=== PATIENT | female | born 1940 | race Caucasian/White ===

== ENCOUNTER 2018-11-21 21:41 | Inpatient (IN) | payer MEDICARE, OTHER ==
[~2018-11-21] VITALS: Ht 160 cm; Wt 78.0 kg
[2018-11-21 20:00] VITALS: BP 111/65
[~2018-11-21 21:41] MED LIST: ATORVASTATIN CA80 MG PO; CITALOPRAM HBR20 MG PO; CLOPIDOGREL75 MG PO; COL-RITE100 MG PO; DIGOXIN125 MCG PO; IRON55 MG PO; JANTOVEN2.5 MG PO; LISINOPRIL10 MG PO; METOPROLOL SUCC25 MG PO; MIRALAX17 GM PO; NORVASC10 MG PO; PANTOPRAZOLE SO40 MG PO; TOVIAZ8 MG PO; ULTRAM50 MG PO; Z.0.BYSTOLIC10 MG; Z.0.CITALOPRAM HBR20; Z.0.COUMADIN4 MG; Z.0.LASIX20 MG; Z.0.LISINOPRIL40 MG; Z.0.TEKTURNA300 MG; Z.0.VESICARE5 MG; [UNRECOGNIZED DRUG - OTHER] PO
[2018-11-21] MEDS ORDERED: SODIUM CHLORIDE 0.9% 1000ML 1,000 ML IV ONE (22:00)
[2018-11-21 22:31] LABS: BASOPHILS # (AUTO) 0.1 (0.0-0.1); EOSINOPHILS # (AUTO) 0.3 (0.0-0.4); EOSINOPHILS % 5.3 % (0.0-6.0); HEMATOCRIT 42.3 % (34.2-44.1); HEMOGLOBIN 13.7 g/dL (12.0-16.0); LYMPHOCYTES # (AUTO) 0.9 (1.0-3.2); LYMPHOCYTES % 18.6 % (18.0-39.1); MEAN CORPUSCULAR HEMOGLOBIN 28.1 pg (28-32); MEAN CORPUSCULAR HGB CONC 32.4 g/dL (31-35); MEAN CORPUSCULAR VOLUME 86.7 fL (81-99); MONOCYTES # (AUTO) 0.5 (0.2-0.8); MONOCYTES % 9.7 % (4.4-11.3); NEUTROPHILS # (AUTO) 3.2 (2.1-6.9); NEUTROPHILS % 65.2 % (38.7-80.0); PLATELET COUNT 223 x10e3/uL (140-360); RED BLOOD COUNT 4.88 x10e6/uL (3.6-5.1); RED CELL DISTRIBUTION WIDTH 14.7 % (11.7-14.4)
[2018-11-21 22:38] LABS: INR 0.92; PARTIAL THROMBOPLASTIN TIME 26.2 seconds (23.8-35.5); PROTHROMBIN TIME 13.2 seconds (11.9-14.5)
[2018-11-21 22:42] LABS: CLARITY,URINE CLEAR (CLEAR); COLOR,URINE YELLOW (YELLOW)
[2018-11-21 22:47] LABS: ALBUMIN 4.1 g/dL (3.5-5.0); ALBUMIN/GLOBULIN RATIO 1.3 (0.8-2.0); ANION GAP 21.8 mmol/L (8-16); CALCIUM 11.4 mg/dL (8.4-10.2); CREATININE, SERUM 2.26 mg/dL (0.57-1.11); POTASSIUM 3.8 mmol/L (3.5-5.1)
[2018-11-21 22:48] LABS: BILIRUBIN,URINE NEGATIVE (NEGATIVE); KETONES,URINE NEGATIVE (NEGATIVE); LEUKOCYTE ESTERASE ,URINE NEGATIVE (NEGATIVE); NITRITE,URINE NEGATIVE (NEGATIVE); PROTEIN,URINE DIPSTICK NEGATIVE (NEGATIVE); URINE UROBILINOGEN 0.2 mg/dL (0.2 - 1)
[2018-11-21 22:53] LABS: CREATINE KINASE MB 0.5 ng/mL (0-5.0)
[2018-11-21 23:00] LABS: BACTERIA,URINE RARE /HPF; EPITHELIAL CELLS,URINE FEW /LPF; WBC,URINE (MAN) 0-5 /HPF (0-5)
[2018-11-21] MEDS ORDERED: INSULIN REGULAR, HUMAN 100 UNIT/1 ML 3ML VIAL SQ ONE (23:00)
[2018-11-21] MEDS ORDERED: DIGOXIN INJ 0.25 MG/ML 2 ML AMP IV ONE (23:00)
[2018-11-21] MEDS ORDERED: DIGOXIN INJ 0.25 MG/ML 2 ML AMP ONE (23:08)
--- NOTE | 2018-11-21 23:22 | Diagnostic Imaging Report ---
CHEST SINGLE (PORTABLE), 11/21/2018 9:42 PM Technique: CHEST SINGLE (PORTABLE) Comparison: None available. Clinical history: Shortness of breath Findings: See Impression Impression: Limited by portable technique, soft tissue attenuation. Consider follow-up upright PA and lateral. 1. Lines/Tubes: Left chest wall dual-lead pacer noted. 2. Enlarged cardiomediastinal silhouette. Prominent ernie/central pulmonary arteries arteries. Aortic calcifications. 3. Low lung volumes. No overt edema or consolidation. No effusion or pneumothorax. Signed by: Dr Sherice Ferrer MD on 11/21/2018 11:19 PM
[2018-11-22] VITALS (9 sets, daily range): BP systolic 111–141; BP diastolic 65–80
[2018-11-22] MEDS ORDERED: SODIUM CHLORIDE 0.9% 1000ML 1,000 ML IV SCH (00:27)
[2018-11-22] MEDS ORDERED: DEXTROSE 50% SYRINGE 50 ML IV PRN (00:30)
--- NOTE | 2018-11-22 00:43 | NUR ---
NOTIFIED MD OF 425 BS, PUTTING IN NEW ORDERS
[2018-11-22] MEDS ORDERED: INSULIN REGULAR, HUMAN 100 UNIT/1 ML 3ML VIAL SQ ONE (00:45)
--- OUTSIDE RECORDS SUMMARY | 2018-11-22 01:01 | XMS REPORT ---
Author Author [facility] Address Unknown Phone Unavailable Care Team Providers Care Head Of Acquisitions Name Role Phone Teresa BAUTISTA Unavailable Unavailable Problems This patient has no known problems. Allergies, Adverse Reactions, Alerts This patient has no known allergies or adverse reactions. Medications This patient has no known medications. Results Test Description Test Time Test Comments Text Results Atomic Results Result Comments CHEST SINGLE (PORTABLE) 2018-11-21 23:17:00 [facility] [address] [place] [address] Patient Name: MAXIMILIANO MANCIA MR #: [id number] : 1940 Age/Sex: 78/F Req #: [id number] Adm Physician: Ordered by: PAOLA BAUTISTA MD Report #: [id number] Location: ER Room/Bed: Procedure: [id number] DX/CHEST SINGLE (PORTABLE) Exam Date: 11/21/18 Exam Time: 2224 REPORT STATUS: Signed CHEST SINGLE (PORTABLE), 11/21/2018 9:42 PM Technique: CHEST SINGLE (PORTABLE) Comparison: None available. Clinical history: Shortness of breath Findings: See Impression Impression: Limited by portable technique, soft tissue attenuation. Consider follow-up upright PA and lateral. 1. Lines/Tubes: Left chest wall dual-lead pacer noted. 2. Enlarged cardiomediastinal silhouette. Prominent ernie/central pulmonary arteries arteries. Aortic calcifications. 3. Low lung volumes. No overt edema or consolidation. No effusion or pneumothorax. Signed by: Dr Jaiden Ferrer MD on 11/21/2018 11:19 PM Dictated By: JAIDEN FERRER MD 18 Transcribed By: RADHA on 11/21/182318 COPY TO: PAOLA BAUTISTA MD
[2018-11-22] MEDS ORDERED: FUROSEMIDE40 MG PO (01:12)
[2018-11-22] MEDS ORDERED: FENOFIBRATE145 MG PO (01:12)
[2018-11-22] MEDS ORDERED: METFORMIN HCL500 MG PO (01:12)
[2018-11-22] MEDS ORDERED: ATORVASTATIN CA40 MG PO (01:12)
[2018-11-22] MEDS ORDERED: POTASSIUM CHLO20 ME1 PO (01:12)
[2018-11-22] MEDS ORDERED: ASPIR 8181 MG PO (01:12)
[2018-11-22] MEDS ORDERED: GLIMEPIRIDE2 MG PO (01:12)
[2018-11-22] MEDS ORDERED: LOPERAMIDE2 MG PO (01:12)
[2018-11-22] MEDS ORDERED: METOPROLOL TART25 MG PO (01:12)
[2018-11-22] MEDS ORDERED: CALCIUM 500+D1 EACH (01:12)
--- NOTE | 2018-11-22 02:05 | NUR ---
INFORMED AJAY SZYMANSKI OF NEED TO RE-CHECK BLOOD GLUCOSE AFTER LAST DOSE OF 10U/SUBQ HUMULIN R GIVEN HERE IN ER.
--- NOTE | 2018-11-22 07:25 | NUR ---
RECD PT AWAKE ,TRYING TO GET OUT OF BED,BED ALARM IN PLACE,APHASIC,
[2018-11-22 08:28] LABS: CREATINE KINASE MB 0.6 ng/mL (0-5.0)
[2018-11-22] MEDS: INSULIN REGULAR, HUMAN 100 UNIT/1 ML 3ML VIAL SQ SCH ×4 (08:30→21:27)
[2018-11-22] MEDS: GLIMEPIRIDE 2 MG TAB PO SCH (09:00)
[2018-11-22] MEDS: CITALOPRAM HYDROBROMIDE 20 MG TAB PO SCH (09:00)
[2018-11-22] MEDS: DOCUSATE SODIUM 100 MG CAP PO SCH (09:00)
[2018-11-22] MEDS ORDERED: CLOPIDOGREL BISULFATE 75 MG TAB PO SCH (09:00)
[2018-11-22] MEDS ORDERED: METOPROLOL SUCCINATE 25 MG TAB XL PO SCH (09:00)
[2018-11-22] MEDS: METFORMIN HCL 500 MG TAB PO SCH ×2 (09:00→17:00)
[2018-11-22] MEDS: ASPIRIN 81 MG CHEW TAB PO SCH (09:00)
[2018-11-22] MEDS: POTASSIUM CHLORIDE 20 MEQ TAB CR PO SCH ×2 (09:01→17:00)
[2018-11-22] MEDS: DIGOXIN 0.125 MG TAB PO SCH (09:01)
[2018-11-22] MEDS: METOPROLOL TARTRATE 25 MG TAB PO SCH ×2 (09:02→17:00)
[2018-11-22] MEDS: AMLODIPINE BESYLATE 10 MG TAB PO SCH (09:02)
[2018-11-22] MEDS: FUROSEMIDE 40 MG TAB PO SCH ×2 (09:02→17:00)
[2018-11-22] MEDS: LISINOPRIL 10 MG TAB PO SCH (09:04)
[2018-11-22] MEDS: PANTOPRAZOLE SOD 40 MG TABEC PO SCH (09:05)
[2018-11-22] MEDS: FENOFIBRATE 48 MG TAB PO SCH (09:05)
[2018-11-22 14:59] LABS: CREATINE KINASE MB 0.6 ng/mL (0-5.0)
[2018-11-22] MEDS ORDERED: WARFARIN SOD 2.5 MG TAB PO SCH (17:00)
[2018-11-22] MEDS ORDERED: RISPERDAL0.25 MG PO (17:40)
--- NOTE | 2018-11-22 18:01 | NUR ---
PT UP IN BED NO DISTRESS NOTED ,NO S/S DISCOMFORT
--- NOTE | 2018-11-22 19:30 | NUR ---
Patient visited in room during nursing rounds. Patient alert and oriented x0-1. Patient is bed bound and extremely weak. Pt is confused with at time aphasic in nature. Pt is diapered and incontinent. Bed alarm active. Will monitor closely.
[2018-11-23] VITALS (7 sets, daily range): BP systolic 110–128; BP diastolic 56–78
[2018-11-23 06:03] LABS: BASOPHILS # (AUTO) 0.1 (0.0-0.1); EOSINOPHILS # (AUTO) 0.3 (0.0-0.4); EOSINOPHILS % 4.5 % (0.0-6.0); HEMATOCRIT 43.3 % (34.2-44.1); HEMOGLOBIN 13.9 g/dL (12.0-16.0); LYMPHOCYTES % 14.5 % (18.0-39.1); MEAN CORPUSCULAR HEMOGLOBIN 28.3 pg (28-32); MEAN CORPUSCULAR HGB CONC 32.1 g/dL (31-35); MEAN CORPUSCULAR VOLUME 88.2 fL (81-99); MONOCYTES # (AUTO) 0.6 (0.2-0.8); MONOCYTES % 8.7 % (4.4-11.3); NEUTROPHILS # (AUTO) 4.7 (2.1-6.9); NEUTROPHILS % 70.9 % (38.7-80.0); PLATELET COUNT 204 x10e3/uL (140-360); RED BLOOD COUNT 4.91 x10e6/uL (3.6-5.1); RED CELL DISTRIBUTION WIDTH 14.1 % (11.7-14.4)
[2018-11-23 06:44] LABS: ALBUMIN 3.8 g/dL (3.5-5.0); ALBUMIN/GLOBULIN RATIO 1.3 (0.8-2.0); ANION GAP 18.1 mmol/L (8-16); CALCIUM 10.1 mg/dL (8.4-10.2); CREATININE, SERUM 1.83 mg/dL (0.57-1.11); POTASSIUM 4.1 mmol/L (3.5-5.1)
[2018-11-23] MEDS: INSULIN REGULAR, HUMAN 100 UNIT/1 ML 3ML VIAL SQ SCH ×4 (07:30→21:27)
--- NOTE | 2018-11-23 07:30 | NUR ---
PATIENT IS AWAKE AND IN STABLE CONDITION WITH NO S/S OF RESPIRATORY DISTRESS. NO PAIN VOICED. RN AND PCT APPLIED BILATERAL HEEL PROTECTORS. 02 APPLIED AT 2L NC. BED ALARM ON. CALL LIGHT IS WITHIN REACH, PATIENT INSTRUCTED TO CALL FOR ASSISTANCE NEEDED.
[2018-11-23] MEDS: METFORMIN HCL 500 MG TAB PO SCH ×2 (09:03→17:54)
[2018-11-23] MEDS: CITALOPRAM HYDROBROMIDE 20 MG TAB PO SCH (09:03)
[2018-11-23] MEDS: GLIMEPIRIDE 2 MG TAB PO SCH (09:03)
[2018-11-23] MEDS: DOCUSATE SODIUM 100 MG CAP PO SCH (09:03)
[2018-11-23] MEDS: FUROSEMIDE 40 MG TAB PO SCH ×2 (09:03→17:54)
[2018-11-23] MEDS: DIGOXIN 0.125 MG TAB PO SCH (09:03)
[2018-11-23] MEDS: ASPIRIN 81 MG CHEW TAB PO SCH (09:03)
[2018-11-23] MEDS: POTASSIUM CHLORIDE 20 MEQ TAB CR PO SCH ×2 (09:03→17:54)
[2018-11-23] MEDS: AMLODIPINE BESYLATE 10 MG TAB PO SCH (09:04)
[2018-11-23] MEDS: METOPROLOL TARTRATE 25 MG TAB PO SCH ×2 (09:04→17:55)
[2018-11-23] MEDS: RISPERIDONE 0.5 MG TAB PO SCH ×2 (09:04→17:55)
[2018-11-23] MEDS: LISINOPRIL 10 MG TAB PO SCH (09:04)
[2018-11-23] MEDS: FENOFIBRATE 48 MG TAB PO SCH (09:04)
[2018-11-23] MEDS: PANTOPRAZOLE SOD 40 MG TABEC PO SCH (09:04)
--- NOTE | 2018-11-23 11:35 | NUR ---
RADHA REC'D PHONE CALL TODAY FROM PT'S DTR LAINE FIORE [phone] STATING THAT WHEN HER MOTHER IS DISCHARGED SHE WILL BE RETURNING TO [facility]ER [facility] STATES SHE HAS ALREADY SIGNED PAPERS WITH IDRIS FROM [facility]
--- NOTE | 2018-11-23 16:52 | NUR ---
CASE MANAGEMENT INFORMED RN PATIENT WILL HAVE POSSIBLE DISCHARGE FOR TOMORROW.
--- NOTE | 2018-11-23 17:13 | NUR ---
SPOKE Flori STEINBERG FROM [facility] THIS AM. [facility] PAPERWORK HAD BEEN SIGNED BY THE DTR, LAINE, AND SHE WOULD BE WORKING ON GETTING THE PT BACK TO [facility] TODAY. MET Flori JANG, DTR, AT THE PT.'S BEDSIDE ON HER LUNCH BREAK. STATES SHE WAS AWARE HER MOTHER WOULD RETURN TO [facility]. NOTIFIED BEDSIDE NURSE, LEISA ONCE [facility] WAS READY WE WOULD NEED A DC ORDER TO HOSPICE FOR THE PT. VERBALIZED UNDERSTANDING. STATES SHE WILL REACH OUT TO DR. ANNE FOR ORDERS. CM LATER PLACED CALL TO DR. ANNE REGARDING PT RETURNING HOME TODAY. DR. ANNE STATES THE DTR FELT THE MOVE WAS QUICK. INQUIRED IF SS BS'S COULD BE DONE WHILE THE PT IS IN HOSPICE. INFORMED DR. ANNE THE PT WILL BE UNDER THE CARE OF ANOTHER PHYSICIAN AND HE/SHE WOULD BE MANAGING THE PT'S CARE. DR. ANNE ASKED TO FIND OUT IF THIS COULD BE DONE. IDRIS TOUSSAINT WAS PRESENT AND STATED THE FACILITY CAN DO BS'S, BUT THE ACCEPTING MD; DR. TORRES, WILL BE GIVING THE ORDERS. DR. ANNE ASKED THAT WE HOLD THE DC TIL THE AM. DONE.
--- NOTE | 2018-11-23 19:46 | NUR ---
PATIENT IS RESTING IN BED- IN STABLE CONDITION WITH NO S/S OF RESPIRATORY DISTRESS. NO PAIN VOICED. BED ALARM APPLIED. CALL LIGHT IS WITHIN REACH, INSTRUCTED TO CALL FOR ASSISTANCE NEEDED. REPORT GIVEN TO ONCOMING NURSE
[2018-11-24] VITALS (8 sets, daily range): BP systolic 101–195; BP diastolic 57–90
--- NOTE | 2018-11-24 06:50 | NUR ---
PT IS SCREAMING. I CALLED DAUGHTER LAINE TO INFORM HER. DAUGHTER STATES THAT SHE DOES DOES AT HOME. DAUGHTER STATES THAT SHE WILL BE HERE SHORTLY.
[2018-11-24] MEDS: INSULIN REGULAR, HUMAN 100 UNIT/1 ML 3ML VIAL SQ SCH ×4 (07:30→21:30)
[2018-11-24] MEDS: ASPIRIN 81 MG CHEW TAB PO SCH (08:51)
[2018-11-24] MEDS: POTASSIUM CHLORIDE 20 MEQ TAB CR PO SCH ×2 (08:51→16:55)
[2018-11-24] MEDS: GLIMEPIRIDE 2 MG TAB PO SCH (08:51)
[2018-11-24] MEDS: CITALOPRAM HYDROBROMIDE 20 MG TAB PO SCH (08:51)
[2018-11-24] MEDS: DOCUSATE SODIUM 100 MG CAP PO SCH (08:51)
[2018-11-24] MEDS: METFORMIN HCL 500 MG TAB PO SCH ×2 (08:51→16:55)
[2018-11-24] MEDS: LISINOPRIL 10 MG TAB PO SCH (08:52)
[2018-11-24] MEDS: PANTOPRAZOLE SOD 40 MG TABEC PO SCH (08:52)
[2018-11-24] MEDS: FUROSEMIDE 40 MG TAB PO SCH ×2 (08:52→16:55)
[2018-11-24] MEDS: FENOFIBRATE 48 MG TAB PO SCH (08:52)
[2018-11-24] MEDS: RISPERIDONE 0.5 MG TAB PO SCH ×2 (08:52→16:56)
[2018-11-24] MEDS: METOPROLOL TARTRATE 25 MG TAB PO SCH ×2 (08:52→16:56)
[2018-11-24] MEDS: DIGOXIN 0.125 MG TAB PO SCH (08:52)
[2018-11-24] MEDS: AMLODIPINE BESYLATE 10 MG TAB PO SCH (08:52)
[2018-11-24] MEDS: TRAMADOL HCL 50 MG TAB PO PRN (16:56)
[2018-11-25 00:28] VITALS: BP 109/70
[2018-11-25] MEDS: TRAMADOL HCL 50 MG TAB PO PRN (01:49)
[2018-11-25 04:00] VITALS: BP 100/64
--- NOTE | 2018-11-25 07:30 | NUR ---
PT UP IN BED NO DISTRESS NOTED,DENIES PAIN.
[2018-11-25 08:30] VITALS: BP 113/55
--- NOTE | 2018-11-25 08:48 | NUR ---
SPOKE WITH IDRIS GRAMAJO WITH [facility], PT WILL BE PICKED UP AT 10 AM BY [facility] TO RETURN TO [facility].
[2018-11-25] MEDS: DIGOXIN 0.125 MG TAB PO SCH (09:00)
[2018-11-25] MEDS: RISPERIDONE 0.5 MG TAB PO SCH (09:00)
[2018-11-25] MEDS: ASPIRIN 81 MG CHEW TAB PO SCH (09:00)
[2018-11-25] MEDS: METFORMIN HCL 500 MG TAB PO SCH (09:00)
[2018-11-25] MEDS: CITALOPRAM HYDROBROMIDE 20 MG TAB PO SCH (09:00)
[2018-11-25] MEDS: FUROSEMIDE 40 MG TAB PO SCH (09:00)
[2018-11-25] MEDS: DOCUSATE SODIUM 100 MG CAP PO SCH (09:00)
[2018-11-25] MEDS: PANTOPRAZOLE SOD 40 MG TABEC PO SCH (09:00)
[2018-11-25] MEDS: POTASSIUM CHLORIDE 20 MEQ TAB CR PO SCH (09:00)
[2018-11-25] MEDS: METOPROLOL TARTRATE 25 MG TAB PO SCH (09:00)
[2018-11-25] MEDS: AMLODIPINE BESYLATE 10 MG TAB PO SCH (09:00)
[2018-11-25] MEDS: LISINOPRIL 10 MG TAB PO SCH (09:00)
[2018-11-25] MEDS: FENOFIBRATE 48 MG TAB PO SCH (09:00)
[2018-11-25] MEDS: GLIMEPIRIDE 2 MG TAB PO SCH (09:00)
--- NOTE | 2018-11-25 10:15 | NUR ---
DISCHARGED TO [facility] VIA AMBULANCE TO HOSPICE CARE.
== END 2018-11-25 10:19 | disposition hospice, inpatient (51) | DRG 639 ==
LOC: ER 21:41 → ERHOLD 11-22 00:58 → MED/SURG3 11-22 01:37
PROVIDERS: ADMIT Internal Medicine; ATTEND Internal Medicine
DX: E11.65 Type 2 diabetes mellitus with hyperglycemia (principal); I48.0 Paroxysmal atrial fibrillation; E11.22 Type 2 diabetes mellitus with diabetic chronic kidney disease; I12.9 Hypertensive chronic kidney disease with stage 1 through stage 4 chronic kidney disease, or unspecified chronic kidney disease; N18.3 Chronic kidney disease, stage 3 (moderate); F03.90 Unspecified dementia, unspecified severity, without behavioral disturbance, psychotic disturbance, mood disturbance, and anxiety; Z86.718 Personal history of other venous thrombosis and embolism; Z79.84 Long term (current) use of oral hypoglycemic drugs; Z88.5 Allergy status to narcotic agent
CPT/HCPCS: 36415; 71045; 80053; 80162; 81001; 82550; 82553; 82948; 84484; 85025; 85610; 85730; 93005; 99284; J1160; J7030